=== PATIENT | female | born 1985 | race Caucasian/White ===

== ENCOUNTER 2018-01-09 10:36 | Emergency (ER) | payer OTHER ==
[~2018-01-09] VITALS: Ht 154.9 cm; Wt 59.0 kg
[2018-01-09 10:38] VITALS: BP 118/61
--- NOTE | 2018-01-09 11:42 | PHYS DOC ---
Past History Past Medical History: Cancer Past Surgical History: Cancer Surgery, Cholecystectomy, Alcohol Use: None Drug Use: None Adult General Chief Complaint Chief Complaint: Neck Pain HPI HPI 32-year-old female presents with right-sided neck pain. Patient states she has had pain on the side of her neck for a few months. She presents today because the pain seems to be getting worse. It is worse with flexion of her head and turning her head to the right. She has had massages, onto a chiropractor, even on some physical therapy and has not improved the pain. The patient is mostly concerned because she was recently diagnosed with breast cancer a few months ago and had a lumpectomy. The margins were reportedly clear, but the patient is still concerned that her pain could be metastasis. Patient is leaving the country in a few weeks for the . She has not informed her oncologist about this pain. She denies fever or chills. She denies any trauma or inciting event before this started. She has no history of neck trauma in the past. No surgeries. Review of Systems Review of Systems Constitutional: Denies fever or chills [] Eyes: Denies change in visual acuity, redness, or eye pain [] HENT: Right-sided neck pain[] Respiratory: Denies cough or shortness of breath [] Cardiovascular: No additional information not addressed in HPI [] GI: Denies abdominal pain, nausea, vomiting, bloody stools or diarrhea [] : Denies dysuria or hematuria [] Musculoskeletal: Denies back pain or joint pain [] Integument: Denies rash or skin lesions [] Neurologic: Denies headache, focal weakness or sensory changes [] Endocrine: Denies polyuria or polydipsia [] All other systems were reviewed and found to be within normal limits, except as documented in this note. Physical Exam Physical Exam Constitutional: Well developed, well nourished, no acute distress, non-toxic appearance. [] HENT: Normocephalic, atraumatic, bilateral external ears normal, oropharynx moist, no oral exudates, nose normal. [] Eyes: PERRLA, EOMI, conjunctiva normal, no discharge. [] Neck: Normal range of motion, mild right sided paraspinal tenderness, supple, no stridor. [] Cardiovascular:Heart rate regular rhythm, no murmur [] Lungs & Thorax: Bilateral breath sounds clear to auscultation [] Abdomen: Bowel sounds normal, soft, no tenderness, no masses, no pulsatile masses. [] Skin: Warm, dry, no erythema, no rash. [] Back: No tenderness, no CVA tenderness. [] Extremities: No tenderness, no cyanosis, no clubbing, ROM intact, no edema. [] Neurologic: Alert and oriented X 3, normal motor function, normal sensory function, no focal deficits noted. [] Psychologic: Affect normal, judgement normal, mood normal. [] Current Patient Data Vital Signs Vital Signs Date Time Temp Pulse Resp B/P (MAP) Pulse Ox O2 Delivery O2 Flow Rate FiO2 01/09/18 10:38 98.0 61 16 99 Room Air EKG EKG [] Radiology/Procedures Radiology/Procedures Five-view cervical spine series Clinical indications: Neck pain for 3 months. No known fall or trauma. FINDINGS: No acute fracture or discitis or osteolytic process or anterolisthesis or prevertebral soft tissue swelling is evident. There is mild degenerative disc space narrowing and endplate spurring at C5-6. No perching of facet joints is seen. No significant narrowing of the neural foramina is evident. IMPRESSION: Mild degenerative cervical spondylosis at C5-C6. Electronically signed by: Phong Nuñez MD (01/09/2018 12:29 PM) [facility][] Course & Med Decision Making Course & Med Decision Making Pertinent Labs and Imaging studies reviewed. (See chart for details) The patient's x-ray does show some mild degenerative changes C5-C6. It's possible that her symptoms are related to some nerve irritation in this area. I advised that she still contact her oncologist to review these new symptoms to be sure that I wanted to some additional testing. She is stable for discharge at this time. [] Dragon Disclaimer Dragon Disclaimer This electronic medical record was generated, in whole or in part, using a voice recognition dictation system. AYUSH INFANTE DO Jan 09, 2018 11:42
--- NOTE | 2018-01-09 12:33 | RAD ---
Five-view cervical spine series Clinical indications: Neck pain for 3 months. No known fall or trauma. FINDINGS: No acute fracture or discitis or osteolytic process or anterolisthesis or prevertebral soft tissue swelling is evident. There is mild degenerative disc space narrowing and endplate spurring at C5-6. No perching of facet joints is seen. No significant narrowing of the neural foramina is evident. IMPRESSION: Mild degenerative cervical spondylosis at C5-C6. Electronically signed by: Phong Nuñez MD (01/09/2018 12:29 PM) [facility]
== END 2018-01-09 13:16 | disposition home or self-care (01) ==
LOC: ER 10:36
DX: M47.892 Other spondylosis, cervical region (principal)
CPT/HCPCS: 72050; 99284